=== PATIENT | female | born 1945 | race Caucasian/White ===

== ENCOUNTER → 2016-12-24 | Outpatient (CLI) | payer OTHER ==
[~2016-12-24] MED LIST: ACETAMINOPHEN-1 EAC1 PO; ACETAMINOPHEN325 M1 PO; ADULT LOW DOSE81 MG PO; BIOTIN10 MG PO; CENTRUM TABLET1 EACH PO; CIPROFLOXACIN500 M1 PO; CLONIDINE HCL0.2 M2 PO; CONJUGATED ESTROGENS VAG; DEPAKENE250 MG PO; DYAZIDE 37.5-21 EACH PO; ELAVIL PO; FISH OIL 1,001000 MG PO; FLAXSEED OIL1000 MG PO; KAPVAY0.1 MG PO; LAMICTAL XR100 MG PO; LAMOTRIGINE150 MG PO; LEVOTHROID100 MC1 PO; LEVOTHROID88 MCG PO; MACROBID 100 M100 M1 PO; MULTIVITAMINS PO; PATANOL OPHTHALMIC; PREMARIN; TEGRETOL XR100 MG PO; TOPROL XL25 MG PO; TRILEPTAL150 MG PO; TUMS PO; VITAMIN D-32000 UNIT PO; VITAMIN D1000 UNI1 PO; VITAMINC500 PO; ZOCOR 20 MG TAB20 M1 PO; ZYRTEC10 M2 PO
== END ==
LOC: ULTRA 09:03
DX: I10 Essential (primary) hypertension (principal)

== ENCOUNTER → 2017-01-06 | Outpatient (CLI) | payer OTHER | LOC: CAT 09:51 | DX: I72.2 Aneurysm of renal artery (principal) ==

== ENCOUNTER → 2018-09-04 | Outpatient (CLI) | payer OTHER | LOC: MRI 08-24 14:13 | DX: M19.012 Primary osteoarthritis, left shoulder (principal); M25.412 Effusion, left shoulder; M75.52 Bursitis of left shoulder ==

== ENCOUNTER 2019-07-25 07:05 | Inpatient (IN) | payer OTHER ==
[2019-07-19 09:47] LABS: HEMATOCRIT 42.9 % (37.0-47.0); HEMOGLOBIN 14.1 gm/dL (12.0-15.0); MCH 30.4 pg (26.0-34.0); MCV 92.3 fL (80.0-100.0); RBC 4.64 mil/uL (4.20-5.00); RDW 12.4 % (10.5-14.5); WBC 5.8 thou/uL (4.0-11.0)
[2019-07-19 09:55] LABS: CALCIUM 9.7 mg/dL (8.5-10.1); CREATININE 1.3 mg/dL (0.6-1.0); POTASSIUM 4.7 mmol/L (3.5-5.1)
[2019-07-19 09:59] LABS: PROTIME 9.9 Seconds (9.3-11.4)
[2019-07-19 10:41] LABS: URINE BILIRUBIN NEGATIVE (Negative); URINE BLOOD NEGATIVE (Negative); URINE CLARITY CLEAR; URINE COLOR YELLOW; URINE GLUCOSE-RANDOM* NEGATIVE (Negative); URINE KETONES NEGATIVE (Negative); URINE LEUKOCYTES-REFLEX 1+ (Negative); URINE NITRITE-REFLEX NEGATIVE (Negative); URINE PROTEIN (DIPSTICK) NEGATIVE (Negative); URINE UROBILINOGEN 0.2 E.U./dl (0.2-1.0)
[2019-07-19 10:55] LABS: BACTERIA-REFLEX 1-9 Few /HPF (None Seen); CRYSTALS None Seen /LPF (None Seen); HYALINE CASTS 0-3 Few /LPF (None Seen); SQUAMOUS >10 Many /LPF (0-3); URINE RBC None Seen /HPF (0-2)
--- NOTE | 2019-07-19 11:47 | EKG ---
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 ness : 1945 Requested By: Eben Mccullough Order Number: [id number] MD: Krishna Arce Measurements Intervals Bryant Rate: 50 P: 23 IA: 184 QRS: -75 QRSD: 158 T: -15 QT: 490 QTc: 447 Interpretive Statements Sinus rhythm RBBB and LAFB Compared to ECG 03/13/2013 09:09:27 Right bundle-branch block now present Sinus bradycardia no longer present Electronically Signed On 07-19-2019 11:47:43 [employer] OPERATOR by Krishna Arce [email or web address] <ELECTRONICALLY SIGNED> By: Krishna Arce MD 07/19/19 1147 [id number] [id number] Krishna Arce MD /EPI
[~2019-07-25] VITALS: Ht 165.1 cm; Wt 86.6 kg
[~2019-07-25 07:05] MED LIST changes: +BIOTIN5000 MCG PO; +CENTRUM SILVER1 EAC5 PO; +LAMICTAL XR250 MG PO; +NEURONTIN100 MG PO; +RESTASIS1 EACH OPHTHALMIC; +SYSTANE 0.3-0.1 EACH OPHTHALMIC; +TOPROL XL50 MG
[2019-07-25 10:04] VITALS: BP 156/80
[2019-07-25 14:07] VITALS: BP 126/78
--- NOTE | 2019-07-25 14:54 | O ---
[facility] [place] [address] OPERATIVE REPORT Name: CHARLIE CROOK Room #: 440-P [facility] IN M.R.#: [id number] Admission: 07/25/19 Attend Phys: Eben Stallworth Discharge: Date of : 45 Report #: [id number] THIS REPORT FOR: //name// CC: Eben Borja PREOPERATIVE DIAGNOSES: Left shoulder pain, osteoarthritis, biceps tendinopathy. POSTOPERATIVE DIAGNOSES: Left shoulder pain, osteoarthritis, biceps tendinopathy. PROCEDURE PERFORMED: Left total shoulder arthroplasty with open biceps tenodesis. SURGEON: Eben Mccullough MD NEON GLASS BLOWER: Madelyn Shin PA-C. ANESTHESIA: General with preoperative ultrasound-guided interscalene block. FLUIDS: 300 mL crystalloid. ESTIMATED BLOOD LOSS: Approximately 100 mL. IMPLANTS UTILIZED: [employer] Unite size 10 stem and a 135-degree size 10 proximal body with a 44 mm anchor peg glenoid and a 48 x 18 mm eccentric humeral head. DESCRIPTION OF PROCEDURE: After proper identification of the patient and operative site in preoperative holding area, the operative site was signed by myself. Prophylactic antibiotics given. The patient elected to receive an ultrasound-guided block after reviewing the risks, benefits, alternatives and potential complications with anesthesia. After a satisfactory block, the patient was brought back to the operative suite after induction of satisfactory general anesthesia. The patient's left shoulder was examined. Range of motion was comparable to the preoperative assessment. She was carefully positioned in the beach chair with head of bed elevated approximately 40 degrees. Great care was taken to place the neck in a neutral position. Shoulder was sterilely prepped and draped in usual manner. Final skin draping was with Ioban. A [employer] limb positioning system was utilized throughout the entire procedure as well. Anterior deltopectoral approach was planned. Skin was incised sharply. Full thickness skin flaps were developed. Cephalic vein was identified and retracted laterally. Some subdeltoid adhesions were freed bluntly. Sagrario deltoid retractor was used to retract the soft tissues. Tenosynovitis about the long head of biceps tendon was noted. Tendon sheath was opened as well as the bicipital groove. Partial thickness tearing was appreciated. [address] [address] OPERATIVE REPORT Name: CHARLIE CROOK Kevin Room #: 440-P [facility] IN M.R.#: [id number] Admission: 07/25/19 Attend Phys: Eben Stallworth Discharge: Date of : 45 Report #: [id number] biceps was tenodesed to the undersurface of the pectoralis major with #2 FiberWire. Free end of the tendon was followed proximally where the rotator interval was also opened. Anterior circumflex vessels were identified, ligated and cauterized. A lesser tuberosity osteotomy was performed using a flexible osteotome. The subscapularis and inferior capsule was released. A complete loss of cartilage was noted on both sides of the joint. Pronounced spurring about the humeral head was appreciated. A portion of this was removed with a rongeur. 135-degree cutting guide was utilized and a humeral head osteotomy in approximately 25 degrees of retroversion matching his [place] version was performed. Any remaining peripheral osteophytes were then carefully removed. Rotator cuff was intact following the osteotomy. The canal was developed with hand reaming and enlarged up to a size 10 stem, which matched the preoperative templating. Broach and trial stem were utilized. These were impacted. Protection plate was applied and at this point, the shoulder was again reduced. Anterior capsule was carefully released off the subscapularis and an anterior Bankart retractor that was lighted was placed. Next, the labrum, remaining biceps tendon and capsule was excised anteriorly. Inferiorly the labrum and capsule was carefully released right off the junction of the glenoid and a large osteophyte was carefully removed. The axillary nerve was identified and protected throughout the entire procedure. There was excellent glenoid exposure and a +3 44-mm guide was chosen to provide the best pin trajectory. Pin was inserted, its position was verified and then the glenoid face, small amount of the high side was reamed with the pin placed in restoring the more [place] version in a neutral position. The two step reamer was then utilized and after this had been fully prepared with a step drill. Bone graft was saved. The central peg drill hole was contained and well positioned. At this point, the multipin guide was inserted and the peripheral pegs were drilled. Derotation pegs were utilized. All of these were contained. This was irrigated with normal saline. FloSeal was utilized and this was then irrigated and removed. A trial implant previously was well seated and provided good coverage of the glenoid. Cement was prepared on the back table and injected with the Tuohy syringe into the peripheral pegs. Excess bone cement was removed and a bone grafted central peg 44 mm anchor peg glenoid was carefully impacted into position. It was fully seated, had excellent fixation and was held firmly in place until the cement had cured. Next, a 48 mm x 18 mm eccentric humeral head provided the best overall recreation of the proximal humeral anatomy. There is approximately 50% translation posteriorly. Trial implants were removed. Joint was thoroughly irrigated with antibiotic irrigant including humeral canal. Four drill holes were placed within the anterior aspect of the humerus where #2 FiberWire was placed. The stem was prepared on the back table for implantation. It was carefully impacted into position. The inferior 2 sutures were placed around the stem and after the head was carefully impacted into position as well the subscapularis was repaired in a modified Tim-Zeyad technique. Lateral portion of the rotator interval was closed with #2 FiberWire. Shoulder could easily be externally rotated 40 degrees without any tension on the subscapularis. The wound was again thoroughly irrigated with normal saline. [address] [address] OPERATIVE REPORT Name: CHARLIE CROOK Room #: 440-P [facility] IN ..#: [id number] Admission: 07/25/19 Attend Phys: Eben Stallworth Discharge: Date of : 45 Report #: [id number] One gram vancomycin powder was utilized, half of it deep, half of it more superficial. 0 Vicryl was used to close the deltopectoral interval, 2-0 Vicryl for the subcutaneous tissues, final skin closure was with running Monocryl, sealed with Dermabond. Sterile dressing was applied as well as a sling and abduction pillow which will be utilized for 4 weeks postoperatively. Qualified first grade teacher utilized throughout the entire procedure to aid in patient limb positioning, visualization with the arthroscope instrument and suture passage as well as closure and sling application. <ELECTRONICALLY SIGNED> By: Eben Mccullough MD 07/25/19 1454 [id number] Eben Mccullough MD /ben
--- NOTE | 2019-07-25 16:02 | NUR ---
PT ADMITTED RELATED TO LEFT SHOULDER SURGERY. CM REVIEWED CHART AND SPOKE WITH CARE TEAM. CM MET WITH PT AND SPOUSE AT BEDSIDE THIS DAY. PT IS A&O X4. CM ROLE INTRODUCED. PT INDICATED SHE LIVES IN A HOUSE WITH HER SPOUSE WITH 3 STEPS TO ENTER AND ALL NEEDS ON LEVEL ONCE INSIDE. 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 PT INDICATED SHE HAS NO DME OR HH HX. PT INDICATED SHE PLANS TO RETURN HOME ONCE MEDICALLY STABLE WITH SUPPORT AND ASSISTANCE FROM HIS SPOUSE. CM TO FOLLOW INDICATED WITH DC PLANNING.
[2019-07-25] MEDS ORDERED: RESTASIS1 EACH EA. EYE (18:22)
[2019-07-25] MEDS ORDERED: SYSTANE1 EACH EA. EYE (18:24)
[2019-07-25 19:45] VITALS: BP 111/69
[2019-07-26 04:51] VITALS: BP 113/69
[2019-07-26 05:04] LABS: HEMOGLOBIN 12.1 gm/dL (12.0-15.0); POTASSIUM 3.9 mmol/L (3.5-5.1)
--- NOTE | 2019-07-26 06:20 | NUR ---
ASSESSMENT COMPLETED. PT IS ALERT AND ORIENTED. IMMOBILISER TO L ARM.PT GETS UP WELL AND WALKS TO THE BATHROOM. SHE JUST NEEDS HELP SITTING UP.AFEBRILE. CONTINUES ON IV ABTS. VOIDING OKAY. PAIN FAIRLY CONTROLLED WITH PO AND IV PAIN MEDS.CALL LIGHT WITHIN. WILL CONTINUE WITH POC TILL EOS.
[2019-07-26 07:56] VITALS: BP 112/74
--- NOTE | 2019-07-26 15:38 | NUR ---
Assumed care of pt at 0700. Pt states pain has been uncontrolled and she is not ready to discharge to home today. Ortho notified. Pt's pain meds increased in dosage. Shoulder immobilizer in place. Polar pack in place. Pt worked with PT/OT. Room air. Call light within reach. Will continue to monitor.
[2019-07-26 16:59] VITALS: BP 156/76
[2019-07-26 19:16] VITALS: BP 152/54
[2019-07-27 04:05] VITALS: BP 148/58
--- NOTE | 2019-07-27 04:56 | NUR ---
PT ALERT AND ORIENTED X4. PT REPORTS MILD PAIN IN LEFT SHOULDER AT REST AND SEVERE PAIN IN LEFT SHOULDER WITH MOVEMENT. TAKING PRN Q4HR OXYCODONE, REFUSES PRN PAIN MEDICATION FOR BREAKTHROUGH PAIN. ENVIRONMENTAL STIMULI DECREASED. POLAR PACK APPLIED TO LEFT SHOULDER. ALL EXTREMITIES ABSENT OF REDNESS, INCREASED TEMPERATURE, AND SWELLING. PULSES PRESENT IN ALL EXTREMITIES. NO NUMBESS OR TINGLING. PT REPORTS LAST BOWEL MOVEMENT AT HOME. PT AMBULATES WITH STANDBY ASSIST. PT REFUSES Q2HR REPOSITIONING SHE REPORTS SHE IS COMFORTABLE AND DOES NOT WANT TO CAUSE PAIN DUE TO MOVEMENT. ENCOURAGED TO NOTIFY STAFF FOR ALL CONCERNS. BED IN LOWEST POSITION, CALL LIGHT WITHIN REACH, BED ALARM ON. WILL CONTINUE TO MONITOR.
[2019-07-27 07:50] VITALS: BP 150/53
[2019-07-27] MEDS ORDERED: PERCOCET 10-321 EACH PO (07:52)
--- NOTE | 2019-07-27 09:57 | NUR ---
Assumed care of pt at 0700. Pt alert and oriented x4. States pain is more controlled today and she was able to sleep overnight. Shoulder immobilizer in place. Dressing intact with some old drainage. Bruising noted on left arm due to surgery. Polar pack in place. Pt will discharge today once she feels comfortable going home. Call light within reach. Will continue to monitor.
[2019-07-27 13:32] VITALS: BP 150/53
== END 2019-07-27 14:30 | disposition home or self-care (01) | DRG 483 ==
LOC: PRE 07:05 → TBA 08:33 → 4S 08:33 → PRE 08:38 → 4S 13:06
PROVIDERS: Physician Assistant Surgical; ADMIT Orthopaedic Surgery Sports Medicine
PROC: 0RRK0JZ Replacement of Left Shoulder Joint with Synthetic Substitute, Open Approach (ICD-10-PCS; principal; 2019-07-25)
PROC: 0LS40ZZ Reposition Left Upper Arm Tendon, Open Approach (ICD-10-PCS; 2019-07-25)
DX: M19.012 Primary osteoarthritis, left shoulder (principal); I10 Essential (primary) hypertension; E03.9 Hypothyroidism, unspecified; G62.9 Polyneuropathy, unspecified; Z28.21 Immunization not carried out because of patient refusal
CPT/HCPCS: 10102; 50010; 50101; 50172; 50386; 50417; 50697; 50733; 50935; 51320; 51751; 52138; 53000; 53078; 54118; 55430; 56521; 56524; 56525; 56526; 56530; 57095; 57103; 62110; 62900; 64043; 65060; 70005

== ENCOUNTER → 2019-11-13 | Outpatient (CLI) | payer OTHER ==
[~2019-11-13] MED LIST changes: +PERCOCET 10-321 EACH PO; +RESTASIS1 EACH EA. EYE; +SYSTANE1 EACH EA. EYE
== END ==
LOC: RAD 13:24
DX: M25.561 Pain in right knee (principal); R10.2 Pelvic and perineal pain

== ENCOUNTER → 2021-02-18 | Outpatient (CLI) | payer OTHER | LOC: CAT 11:06 | PROVIDERS: ATTEND Family Medicine | DX: Z13.6 Encounter for screening for cardiovascular disorders (principal); E78.00 Pure hypercholesterolemia, unspecified; I25.10 Atherosclerotic heart disease of native coronary artery without angina pectoris ==

== ENCOUNTER → 2021-03-10 | Outpatient (CLI) | payer OTHER | LOC: SJCVCIMAG 11:09 | PROVIDERS: ATTEND Family Medicine | DX: I45.10 Unspecified right bundle-branch block (principal); R93.1 Abnormal findings on diagnostic imaging of heart and coronary circulation; E78.5 Hyperlipidemia, unspecified; E03.9 Hypothyroidism, unspecified; I10 Essential (primary) hypertension; R11.0 Nausea; E66.9 Obesity, unspecified; Z68.32 Body mass index [BMI] 32.0-32.9, adult; Z86.16 Personal history of COVID-19; Z91.040 Latex allergy status; Z88.1 Allergy status to other antibiotic agents; Z88.8 Allergy status to other drugs, medicaments and biological substances ==